=== PATIENT | female | born 1960 | race Caucasian/White ===

== ENCOUNTER 2016-12-06 14:01 | Emergency (ER) | payer OTHER ==
[~2016-12-06] VITALS: Ht 165.1 cm; Wt 92.9 kg
[~2016-12-06 14:01] MED LIST: Colace PO; ENDOCET 5-3251 EACH PO; Feosol PO; THERAGRAN1 TABLET PO
[2016-12-06 17:03] LABS: ADD MIUA? YES; BILIRUBIN NEGATIVE; BLOOD LARGE; COLOR YELLOW ((YELLOW)); GLUCOSE (STRIP) NEGATIVE; KETONES NEGATIVE; LEUKOCYTES NEGATIVE; NITRITE NEGATIVE; PROTEIN (STRIP) NEGATIVE; SPECIFIC GRAVITY 1.015 (1.000-1.030); UROBILINOGEN 0.2 MG/DL (0.2-1.0)
[2016-12-06 17:10] LABS: BACTERIA RARE /HPF; EPITHELIAL CELLS RARE /HPF; MUCUS TRACE /LPF; RED BLOOD CELLS TNTC /HPF (0-5); WHITE BLOOD CELLS 0-5 /HPF (0-5)
[2016-12-06] MEDS ORDERED: ZOFRAN ODT8 MG PO (17:47)
[2016-12-06 18:16] VITALS: BP 141/82
== END 2016-12-06 18:21 | disposition home or self-care (01) ==
LOC: EME 14:01
PROVIDERS: Physician Assistant
DX: N20.1 Calculus of ureter (principal); R11.2 Nausea with vomiting, unspecified; Z85.038 Personal history of other malignant neoplasm of large intestine; Z87.891 Personal history of nicotine dependence
CPT/HCPCS: 81003; 99281; 99284; J2270; J2405; J7030